=== PATIENT | female | born 1940 | race Native Hawaiian/Other Pacific Islander ===

== ENCOUNTER 2017-01-28 14:43 | Outpatient (CLI) | payer OTHER ==
[~2017-01-28 14:43] MED LIST: ALPR0.2566 PO; ELIQUIS5 MG PO; HYDR25TA60 PO; INDO25CA21 PO; LEXAPRO20 MG PO; LIPITOR40 MG PO; TRAM50TA PO; ZANTAC 75 PO
[2017-01-28 14:57] LABS: PLATELET COUNT 239 K/uL (152-353)
[2017-01-28 15:23] LABS: POTASSIUM 4.5 mmol/L (3.6-5.2)
== END 2017-01-28 19:17 | disposition home or self-care (01) ==
LOC: LAB 14:43
PROVIDERS: Nurse Practitioner Family
DX: Z00.00 Encounter for general adult medical examination without abnormal findings (principal); Z79.899 Other long term (current) drug therapy; E78.4 Other hyperlipidemia; I25.10 Atherosclerotic heart disease of native coronary artery without angina pectoris; K21.9 Gastro-esophageal reflux disease without esophagitis; F41.8 Other specified anxiety disorders; E55.9 Vitamin D deficiency, unspecified
CPT/HCPCS: 80053; 80061; 82306; 83036; 84436; 84443; 85027

== ENCOUNTER 2017-04-28 10:43 | Outpatient (CLI) | payer OTHER ==
[2017-04-28 13:51] LABS: PLATELET COUNT 257 K/uL (152-353)
[2017-04-28 14:47] LABS: POTASSIUM 4.3 mmol/L (3.6-5.2)
== END 2017-04-28 19:10 | disposition home or self-care (01) ==
LOC: LAB 10:43 → RAD 10:43
PROVIDERS: Nurse Practitioner Family
DX: I10 Essential (primary) hypertension (principal); E78.4 Other hyperlipidemia; F41.8 Other specified anxiety disorders; Z86.79 Personal history of other diseases of the circulatory system; K21.9 Gastro-esophageal reflux disease without esophagitis; I25.10 Atherosclerotic heart disease of native coronary artery without angina pectoris; Z79.899 Other long term (current) drug therapy; Z51.81 Encounter for therapeutic drug level monitoring; M54.89 Other dorsalgia
CPT/HCPCS: 80053; 80061; 83036; 84436; 84443; 85027

== ENCOUNTER 2017-05-04 10:27 | Emergency (ER) | payer OTHER ==
[~2017-05-04] VITALS: Ht 182.9 cm; Wt 103.4 kg
[2017-05-04 10:33] VITALS: TEMP 98.1
[2017-05-04 11:39] LABS: PLATELET COUNT 306 K/uL (152-353)
[2017-05-04 11:52] LABS: POTASSIUM 4.1 mmol/L (3.6-5.2)
[2017-05-04 14:22] VITALS: BP 157/70
== END 2017-05-04 14:22 | disposition home or self-care (01) ==
LOC: ED 10:27
PROVIDERS: Emergency Medicine
DX: R53.1 Weakness (principal); T38.0X5A Adverse effect of glucocorticoids and synthetic analogues, initial encounter; T46.6X5A Adverse effect of antihyperlipidemic and antiarteriosclerotic drugs, initial encounter; Y92.89 Other specified places as the place of occurrence of the external cause
CPT/HCPCS: 36415; 80053; 82150; 82550; 83690; 83880; 84484; 85027; 86318; 93005; 99283

== ENCOUNTER 2017-05-07 14:35 | Observation (INO) | payer OTHER ==
[~2017-05-07] VITALS: Ht 182.9 cm; Wt 102.1 kg
[2017-05-07 15:55] VITALS: BP 150/83; TEMP 98.2; Ht 182.9 cm; Wt 102.1 kg
[2017-05-07 16:02] VITALS: BP 150/83; TEMP 98.2
[2017-05-07 16:03] LABS: PLATELET COUNT 316 K/uL (152-353)
[2017-05-07] MEDS ORDERED: LOFIBRA54 MG OR (16:13)
[2017-05-07] MEDS ORDERED: FLECAINIDE150 MG PO (16:15)
[2017-05-07 20:00] VITALS: BP 133/69; TEMP 98.8
[2017-05-08] VITALS: BP 148/74; TEMP 98.7
[2017-05-08 04:00] VITALS: BP 102/79; TEMP 98.3
[2017-05-08 06:10] LABS: POTASSIUM 3.7 mmol/L (3.6-5.2)
[2017-05-08 08:00] VITALS: BP 151/69; TEMP 99.1
[2017-05-08 12:00] VITALS: BP 125/67; TEMP 98.7
--- NOTE | 2017-05-08 14:00 | NUR ---
DR. LONG IN TO SEE PATIENT. AGREED ON PLANS TOP DISCHARGE PATIENT HOME. PATIENT HAS A FOLLOW UP APPOINTMENT WITH DR. GAGE (GI). MEDICATIONS CALLED IN TO [facility]. REVIEWED ALL INSTRUCTIONS WITH PATIENT AND HER DAUGHTER. BOTH VERBALIZED UNDERSTANDING OF ALL INSTRUCTIONS. IV REMOVED, BANDAID APPLIED.
--- NOTE | 2017-05-08 14:15 | NUR ---
PATIENT ESCORTED TO HOSPITAL EXIT VIA WHEELCHAIR AND DISCHARGED HOME WITH DAUGHTER IN STABLE CONDITION.
== END 2017-05-08 14:15 | disposition home or self-care (01) ==
LOC: MED/SURG 14:35
PROVIDERS: ADMIT Internal Medicine
DX: K85.80 Other acute pancreatitis without necrosis or infection (principal); R11.2 Nausea with vomiting, unspecified; E86.0 Dehydration; N18.9 Chronic kidney disease, unspecified; I10 Essential (primary) hypertension; K29.60 Other gastritis without bleeding; B96.81 Helicobacter pylori [H. pylori] as the cause of diseases classified elsewhere; Z79.01 Long term (current) use of anticoagulants
CPT/HCPCS: 80048; 80053; 82150; 82550; 83690; 84484; 85027; 93005; 96365; 96366; 96374; 99220; G0378; G0379; J3490

== ENCOUNTER 2017-06-16 12:49 | Outpatient (CLI) | payer OTHER ==
[~2017-06-16 12:49] MED LIST changes: +FLECAINIDE150 MG PO; +LOFIBRA54 MG OR
== END 2017-06-16 13:50 | disposition home or self-care (01) ==
LOC: NM 12:49
DX: R11.2 Nausea with vomiting, unspecified (principal)
CPT/HCPCS: A9537

== ENCOUNTER 2017-09-08 14:15 | Outpatient (CLI) | payer OTHER ==
[2017-09-08 14:41] LABS: PLATELET COUNT 259 K/uL (152-353)
[2017-09-08 15:42] LABS: POTASSIUM 4.1 mmol/L (3.6-5.2)
== END 2017-09-08 21:59 | disposition home or self-care (01) ==
LOC: LAB 14:15
PROVIDERS: Nurse Practitioner Family
DX: E78.4 Other hyperlipidemia (principal); F41.8 Other specified anxiety disorders; I10 Essential (primary) hypertension; Z86.79 Personal history of other diseases of the circulatory system; I25.10 Atherosclerotic heart disease of native coronary artery without angina pectoris; K21.9 Gastro-esophageal reflux disease without esophagitis; Z79.899 Other long term (current) drug therapy; Z51.81 Encounter for therapeutic drug level monitoring
CPT/HCPCS: 80053; 80061; 82306; 83036; 84436; 84443; 85027

== ENCOUNTER → 2017-12-19 11:16 | Outpatient (CLI) | payer OTHER | END | disposition E | LOC: AMB 11:16 | DX: I46.9 Cardiac arrest, cause unspecified (principal) ==